=== PATIENT | female | born 1950 | race Caucasian/White ===

== ENCOUNTER 2020-03-12 19:47 | Emergency (ER) | payer MEDICARE, BC ==
[2020-03-12 20:50] LABS: ABSOLUTE BASOPHILS # (AUTO) 0.1 10^3/uL (0.0-0.2); EOSINOPHILS % (AUTO) 2.7 % (0-6); TOTAL CELLS COUNTED % (AUTO) 100 %
[2020-03-12] MEDS ORDERED: NORMAL SALINE 500 ML IV ONE (20:52)
[2020-03-12 20:55] LABS: ABSOLUTE EOSINOPHILS # (AUTO) 0.1 10^3/uL (0.0-0.6); ABSOLUTE LYMPHOCYTES (AUTO) 1.5 10^3/uL (0.5-4.7); ABSOLUTE MONOCYTES (AUTO) 0.3 10^3/uL (0.1-1.4); ABSOLUTE NEUT (AUTO) 3.3 10^3/uL (1.7-8.2); BASOPHILS % (AUTO) 1.2 % (0-2); HEMATOCRIT 37.1 % (36.0-47.0); HEMOGLOBIN 12.3 g/dL (12.0-15.5); LYMPHOCYTES % (AUTO) 27.4 % (13-45); MEAN CORPUSCULAR HGB CONC 33.1 g/dL (32.0-36.0); MEAN CORPUSCULAR VOLUME 85 fl (80-97); MONOCYTES % (AUTO) 6.2 % (3-13); PLATELET COUNT 239 10^3/uL (150-450); RED BLOOD COUNT 4.38 10^6/uL (3.72-5.28); RED CELL DISTRIBUTION WIDTH 14.3 % (11.5-14.0); SEGMENTED NEUTROPHILS % (AUTO) 62.5 % (42-78); WHITE BLOOD COUNT 5.3 10^3/uL (4.0-10.5)
--- NOTE | 2020-03-12 20:56 | ER Document Report ---
ED General - General Chief Complaint: Shortness Of Breath Stated Complaint: SHORTNESS OF BREATH Time Seen by Provider: 03/12/20 20:40 Primary Care Provider: YUMIKO BORJAS MD [Primary Care Provider] - 03/15/20 Notes: Patient is a 70 year old female that comes to the emergency department for chief complaint of sensation earlier of lightheadedness, she states she is also felt short of breath, she states this made her feel very anxious, EMS came to her house, listen to her, and they stated to her that they felt like the left side of her chest sounded different, she states that she called her primary provider and they recommended she be evaluated in the emergency department. She states that she still feels intermittently lightheaded but she denies shortness of breath, chest pain, fever, or cough. She has a history of COPD, she vapes now and stopped smoking, she wears 3 L nasal cannula as needed but not 24/7. She denies any recent sick exposures or travel. She denies CAD, [place], CVA, CHF, diabetes, or any other medical history except for COPD. She does have DNR paperwork with her. TRAVEL OUTSIDE OF THE [place] IN LAST 30 DAYS: No - Related Data Allergies/Adverse Reactions: Penicillins Allergy (Severe, Verified 04/20/12 14:10) anaphalaxis Home Medications: sumatriptan, brio, spiriva, albuterol, amitriptyline Past Medical History - General Information source: Patient - Social History Smoking Status: Former Smoker Frequency of alcohol use: None Drug Abuse: None Lives with: Family Family History: Reviewed & Not Pertinent Pulmonary Medical History: Reports: Hx COPD Neurological Medical History: Reports: Hx Migraine Past Surgical History: Reports: Hx Hysterectomy, Hx Thyroid Surgery - parathyroidectomy, Hx Tonsillectomy, Hx Tubal Ligation - Immunizations Hx Diphtheria, Pertussis, Tetanus Vaccination: Yes Hx Pneumococcal Vaccination: 05/02/13 Review of Systems - Review of Systems Constitutional: See HPI EENT: No symptoms reported Cardiovascular: See HPI Respiratory: See HPI Gastrointestinal: No symptoms reported Genitourinary: No symptoms reported Female Genitourinary: No symptoms reported Musculoskeletal: No symptoms reported Skin: No symptoms reported Hematologic/Lymphatic: No symptoms reported Neurological/Psychological: No symptoms reported Physical Exam - Vital signs Vitals: Temp 98.1 F 03/12/20 19:47 - Notes Notes: GENERAL: Frail and slightly chronically ill-appearing but alert, talkative, no signs of distress HEAD: Normocephalic, atraumatic. EYES: Pupils equal, round, and reactive to light. Extraocular movements intact. ENT: Oral mucosa moist, tongue midline. Oropharynx unremarkable. Airway patent. Nares patent, sinuses non-tender NECK: Full range of motion. Supple. Trachea midline. No lymphadenopathy. LUNGS: Decreased bilaterally but lung sounds are present, no wheezes, rales, or rhonchi. No tachypnea or respiratory distress. Speaks in full sentences. HEART: Tachycardia but normal rhythm, no murmur ABDOMEN: Soft, non-tender. Non-distended. EXTREMITIES: Moves all 4 extremities spontaneously. No edema, normal radial and dorsalis pedis pulses bilaterally. No cyanosis. BACK: no cervical, thoracic, lumbar midline tenderness. No saddle anesthesia, normal distal neurovascular exam. Moves all extremities in full range of motion. NEUROLOGICAL: Alert and oriented x3. Normal speech. Cranial nerves II through XII grossly intact. Strength 5/5 in all extremities. PSYCH: Normal affect, normal mood. SKIN: Warm, dry, normal turgor. No rashes or lesions noted. Course - Re-evaluation Re-evalutation: On my exam patient is frail but alert, talkative, well-appearing. She is mildly tachycardic but she did receive a DuoNeb treatment. Lungs have decreased breath sounds which are bilateral and equal, she has no tachypnea, she is able to speak in full sentences, she is not hypoxic on her baseline nasal cannula. Chest x-ra y without acute findings. No fever, soft abdomen, unremarkable examination otherwise. CBC with no concerning acute findings, chemistry unremarkable, troponin is negative. BNP is not elevated. Venous blood gas shows normal pH, elevated CO2, elevated bicarbonate. I do not have a comparison baseline but I suspect this is chronic retention and compensation with patient significant COPD. Patient is requesting something to help her calm down, she states she takes an occasional low-dose benzodiazepine for this, she was provided with this on request. D-dimer is not elevated, troponin cycled and negative. On evaluation patient is asymptomatic and has no complaints, heart rate is 105. I discussed with Dr. Phan. Discussed presentation, work-up, plan. Because patient is completely oriented, has no signs of drowsiness or acute mental status change secondary to hypercarbia he agrees this is most likely chronic. Patient will be tested for COVID-19 and discharged, she states she has close follow-up with pulmonology already planned with multiple imaging tests planned including CAT scan for additional management. Discussed return precautions. Patient states appreciation and agreement, stable and well-appearing at time of discharge without any symptoms or current complaints. - Vital Signs Vital signs: Temp Pulse Resp BP Pulse Ox 98.1 F 23 H 141/85 H 93 03/12/20 20:00 03/12/20 22:01 03/12/20 22:00 03/12/20 20:59 - Laboratory Result Diagrams: 03/12/20 20:20 03/12/20 20:20 Laboratory results interpreted by me: 03/12/20 03/12/20 03/12/20 20:20 20:20 21:33 RDW 14.3 H VBG pCO2 68.7 H* VBG HCO3 35.8 H Carbon Dioxide 35 H Glucose 163 H - EKG Interpretation by Me Additional EKG results interpreted by me: EKG shows sinus tachycardia at a rate of 113, QTc 445, normal axis, no T wave inversions or ST segment changes in consecutive leads. Artifact is present. Discharge - Discharge Clinical Impression: Shortness of breath, Lightheadedness Condition: Stable Disposition: HOME, SELF-CARE Additional Instructions: Your evaluation today including laboratory work-up, monitoring, and chest x-ray do not show any concerning findings. You have been tested for COVID-19, you will be contacted with results, see additional details below. Follow-up with your talent partner and primary care. Return if you worsen including rapid or labored breathing, passing out, confusion, fever, or any other concerning or worsening symptoms. As a person under investigation for COVID-19, the [place] Department of Health and Human Services (division on public health) advises you to adhere to the following guidance until your test results are reported to you. If your test result is positive, you will receive additional information from your provider and your local health department at that time. Remain at home until you are cleared by the health provider or public health authorities. Keep a log of visitors to your home, notify any visitors to your home of your isolation status. If you plan to move to a new address or leave the county, notify the local health department in your County. Call your Doctor or seek care if you have an urgent medical need. Before seeking medical care, call him to get instructions from the provider before arriving at the medical office, clinic, or hospital. Notify them that you are being tested for the virus (COVID-19) so that arrangements can be made, as necessary, to p revent transmission to others in the healthcare setting. Next, notify the local health department in your county. If a medical emergency arises and you need to call 911, inform the first responders that you are being tested for the virus that causes COVID-19. Next, notify the local health department in your county. Referrals: YUMIKO BORJAS MD [Primary Care Provider] - 03/15/20
[2020-03-12 21:14] LABS: ALBUMIN 4.1 g/dL (3.5-5.0); ALKALINE PHOSPHATASE 80 U/L (38-126); ANION GAP 5 (5-19); ASPARTATE AMINO TRANSFERASE 29 U/L (14-36); BILIRUBIN,TOTAL 0.3 mg/dL (0.2-1.3); BLOOD UREA NITROGEN 11 mg/dL (7-20); CARBON DIOXIDE 35 mmol/L (22-30); CHLORIDE 98 mmol/L (98-107); GLUCOSE 163 mg/dL (75-110); POTASSIUM 3.6 mmol/L (3.6-5.0); TOTAL PROTEIN 6.9 g/dL (6.3-8.2)
--- NOTE | 2020-03-12 21:14 | EKG REPORT ---
SEVERITY:- ABNORMAL ECG - SINUS TACHYCARDIA 113. NONSPECIFIC LATERAL ST-T CHANGES : Confirmed by: Max Hughes MD 12-Mar-2020 21:13:34
[2020-03-12 21:23] LABS: NT PRO BNP 114 pg/mL (<125)
--- NOTE | 2020-03-12 21:30 | RADIOLOGY REPORT (SQ) ---
EXAM DESCRIPTION: XR CHEST 1 VIEW COMPLETED DATE/TME: 03/12/2020 20:11 CLINICAL HISTORY: 70 years, Female, SOB EXAM DESCRIPTION: CLINICAL HISTORY: SOB COMPARISON: 10/18/2015 FINDINGS: Single view of the chest is submitted. 5 mm density at the right lateral lung could be sequela of prior insult or old granulomatous disease but is nonspecific. Nodule is not excluded. There are probable emphysematous changes. Edema has improved. Densities at the left lung base may be residual of granulomatous disease. Cardiac silhouette is normal. No other focal parenchymal or pleural disease. There is no significant pulmonary vascular engorgement. IMPRESSION: No evidence of acute cardiopulmonary disease.
[2020-03-12 21:49] LABS: TROPONIN I < 0.012 ng/mL
[2020-03-12 22:39] LABS: VENOUS BLOOD BASE EXCESS 7.3 mmol/L; VENOUS BLOOD HCO3 35.8 mmol/L (20-32); VENOUS BLOOD PH 7.34 (7.30-7.42)
[2020-03-12 22:41] LABS: VENOUS BLOOD PCO2 68.7 mmHg (35-63)
[2020-03-12] MEDS ORDERED: LORAZEPAM 0.5 MG TABLET PO ONE (23:03)
[2020-03-12 23:05] LABS: APPEARANCE,URINE CLEAR; BILIRUBIN,URINE NEGATIVE (NEGATIVE); COLOR,URINE STRAW; GLUCOSE, URINE NEGATIVE (NEGATIVE); KETONES,URINE NEGATIVE (NEGATIVE); LEUKOCYTE ESTERASE,URINE NEGATIVE (NEGATIVE); NITRITE,URINE NEGATIVE (NEGATIVE); PROTEIN,URINE NEGATIVE (NEGATIVE); URINE SPECIFIC GRAVITY 1.005; UROBILINOGEN,URINE NEGATIVE mg/dL (<2.0)
[2020-03-13 01:41] VITALS: BP 138/72
== END 2020-03-13 01:41 | disposition home or self-care (01) ==
LOC: ER 19:47
DX: R06.02 Shortness of breath (principal); R42 Dizziness and giddiness; J44.9 Chronic obstructive pulmonary disease, unspecified; Z20.828 Contact with and (suspected) exposure to other viral communicable diseases; Z88.0 Allergy status to penicillin; F17.290 Nicotine dependence, other tobacco product, uncomplicated; Z99.81 Dependence on supplemental oxygen; Z66 Do not resuscitate
CPT/HCPCS: 93005; 99285; 96360; 36415; 85025; 80053; 81001; 84484; 85379; 82803; 83880; 71045; 93010; U0003; J7040; A9270; C9803; 87635